=== PATIENT | female | born 1985 | race Caucasian/White ===

== ENCOUNTER 2016-03-07 12:21 | Inpatient (IN) | payer OTHER ==
[~2016-03-07] VITALS: Ht 157.4 cm; Wt 60.1 kg
--- NOTE | ~2016-03-07 | O ---
[place], [place] OPERATIVE NOTE NAME: [facility]QUIM [facility]ES [id number] UNIT #: [id number] ROOM: 428 DOCTOR: YOKO CANADA MD BIRTHDATE: [birth year] DOS: 03/08/2016 PREOPERATIVE DIAGNOSIS: Left forearm abscess. POSTOPERATIVE DIAGNOSIS: Left forearm abscess. PROCEDURE: Incision and drainage, left forearm abscess. SURGEON: Yoko Canada MD TYING MACHINE OPERATOR: [id number]. ANESTHESIA: MAC. INDICATION: This is a 30-year-old lady with a history of left forearm abscess who comes in today for the above-mentioned procedure. The procedure and its complications were explained to the patient in detail preoperatively, and she agreed to proceed. DESCRIPTION OF PROCEDURE: After identifying the patient, the patient was brought to the operating suite and laid in the supine position. After the parts were painted and draped in the usual sterile fashion, a time-out procedure was called after sedation was administered by the Anesthesia team. An incision was made in the most fluctuant part of the abscess. A small amount of purulence was encountered, which was sent for culture and sensitivity. The abscess cavity was then irrigated with saline and packed with quarter-inch iodoform pack. Dressing was placed. There were no complications. Blood loss was minimal. Dr. Yoko Canada, the attending surgeon, was present throughout the operating case. Yoko Canada MD CM:OPRECORD:OPERATIVE NOTE [id number] YOKO CANADA MD 03/25/16 1436 interface
[~2016-03-07 12:21] MED LIST: AMOXICILLIN500 M2 PO; AMOXIL500 MG PO; BACTRIM DS 8001 TA1 PO; CEPHALEXIN500 M1 PO; CLEOCIN150 MG PO; HYDROCODONE BIT1 T11 PO; MOTRIN800 MG PO; NAPROSYN500 MG PO; NKHM; NORCO 5-325 TA1 EACH PO; OXYCODONE AND A1 TA9 PO; PEN-VEE K500 MG PO; Peridex 473 ML473 ML PO; SUDAFED60 MG PO; TRAMADOL HCL50 MG PO; TRAZODONE100 MG PO; ULTRAM50 MG PO
[2016-03-07 12:38] VITALS: BP 127/83
[2016-03-07 13:22] LABS: BASO # 0.1 10*3/uL (0.0-0.1); BASO % 0.6 % (0.0-1.0); EOS # 0.1 10*3/uL (0.0-0.4); HEMATOCRIT 44.2 % (37.0-47.0); HEMOGLOBIN 14.4 g/dl (12.0-16.0); LYMPH % 23.8 % (27.0-41.0); MEAN CELL VOLUME 93.2 fl (81.0-99.0); MEAN CORPUSCULAR HGB 30.4 pg (27.0-31.0); MEAN CORPUSCULAR HGB CONC 32.6 g/dl (33.0-37.0); MEAN PLATELET VOLUME 11.2 fl (9.6-12.3); MONO # 0.8 10*3/uL (0.1-1.0); NEUT # 5.4 10*3/uL (2.3-7.9); NEUT % 64.2 % (47.0-73.0); PLATELET COUNT AUTOMATED 198 10*3/uL (130-400); RED BLOOD COUNT 4.74 10*6/uL (4.10-5.10); RED CELL DISTRI WIDTH 13.6 % (0-14.5); WHITE BLOOD COUNT 8.3 10*3/uL (4.8-10.8)
[2016-03-07 13:37] LABS: ALBUMIN 3.7 gm/dl (3.1-4.5); ALKALINE PHOSPHATASE 94 U/L (45-117); BILIRUBIN, TOTAL 0.4 mg/dl (0.2-1.0); BUN 8 mg/dl (7-24); CARBON DIOXIDE 27 mmol/L (21-32); CHLORIDE 100 mmol/L (98-107); EST GLOM FILT AFRICAN AMERICAN > 60 ml/min; GLUCOSE 95 mg/dL (65-99); POTASSIUM 4.3 mmol/L (3.5-5.1); SGOT/AST 24 IU/L (3-35); SGPT/ALT 31 U/L (12-78); SODIUM 137 mmol/L (136-145); TOTAL PROTEIN 7.9 gm/dL (6.4-8.2)
[2016-03-07 14:30] VITALS: BP 108/68
[2016-03-07 15:00] VITALS: BP 110/70
[2016-03-07 15:19] LABS: LA>2 REFLEX 2 HR DRAW NOW
[2016-03-07 16:00] VITALS: BP 110/68
[2016-03-07 17:00] VITALS: BP 132/75
[2016-03-07] MEDS ORDERED: PAXIL40 M1 PO ×2 (17:36→17:38)
[2016-03-07 18:18] LABS: URINE AMPHETAMINES < 1000 (1000ng/ml); URINE BARBITURATES < 200 (200ng/ml); URINE COCAINE < 300 (300ng/ml)
[2016-03-07 20:00] VITALS: BP 121/71
[2016-03-08] VITALS (9 sets, daily range): BP systolic 93–116; BP diastolic 37–86
[2016-03-08 01:12] LABS: BILIRUBIN NEGATIVE (NEGATIVE); BLOOD NEGATIVE (NEGATIVE); CLARITY CLEAR (CLEAR); COLOR YELLOW (YELLOW); GLUCOSE NEGATIVE (NEGATIVE); KETONE NEGATIVE (NEGATIVE); LEUKO ESTERASE NEGATIVE (NEGATIVE); NITRITE NEGATIVE (NEGATIVE); PH 7.5 (5.0-9.0); PROTEIN NEGATIVE (NEGATIVE); UROBILINOGEN 0.2 E.U./dl (0.2-1.0)
[2016-03-08 01:20] LABS: URINE REFLEX COMMENT NO (NO); WBC 0-2 wbc/hpf (0-5)
[2016-03-08 06:22] LABS: BASO % 0.6 % (0.0-1.0); EOS # 0.2 10*3/uL (0.0-0.4); EOS % 3.2 % (1.0-4.0); LYMPH # 1.7 10*3/uL (1.3-4.4); LYMPH % 33.1 % (27.0-41.0); MEAN CORPUSCULAR HGB 30.7 pg (27.0-31.0); MEAN PLATELET VOLUME 11.8 fl (9.6-12.3); MONO # 0.5 10*3/uL (0.1-1.0); MONO % 9.8 % (3.0-9.0); NEUT # 2.6 10*3/uL (2.3-7.9); NEUT % 53.1 % (47.0-73.0); PLATELET COUNT AUTOMATED 139 10*3/uL (130-400); RED BLOOD COUNT 3.55 10*6/uL (4.10-5.10); RED CELL DISTRI WIDTH 13.8 % (0-14.5)
[2016-03-08 06:23] LABS: HEMOGLOBIN 10.9 g/dl (12.0-16.0)
[2016-03-08 06:52] LABS: HEMOGLOBIN A1c 5.3 % (4.8-5.6)
[2016-03-08 07:01] LABS: INTERNATIONAL NORM RATIO 1.1 (2.0-3.5); PROTHROMBIN TIME 11.7 SECONDS (9.0-12.4)
[2016-03-08 07:04] LABS: BUN 9 mg/dl (7-24); CARBON DIOXIDE 27 mmol/L (21-32); CHLORIDE 107 mmol/L (98-107); CHOLESTEROL 124 mg/dL (<200); EST GLOM FILT AFRICAN AMERICAN > 60 ml/min; GLUCOSE 95 mg/dL (65-99); HDL CHOLESTEROL 39 mg/dl (40-60); LDL CHOLESTEROL 75 mg/dL (9-159); MAGNESIUM 2.1 mg/dL (1.5-2.1); POTASSIUM 4.2 mmol/L (3.5-5.1); SODIUM 141 mmol/L (136-145); THYROID STIM HORMONE (HS) 0.281 uIU/ml (0.358-4.75); TRIGLYCERIDES 49 mg/dl (<150); VLDL CHOLESTEROL 10 mg/dL (6-40)
[2016-03-08 07:32] LABS: FOLIC ACID 5.76 ng/mL (>5.38)
[2016-03-09] VITALS: BP 114/68
[2016-03-09 03:37] LABS: BASO % 0.8 % (0.0-1.0); EOS # 0.2 10*3/uL (0.0-0.4); EOS % 3.4 % (1.0-4.0); HEMATOCRIT 32.6 % (37.0-47.0); HEMOGLOBIN 10.6 g/dl (12.0-16.0); LYMPH # 1.5 10*3/uL (1.3-4.4); LYMPH % 28.7 % (27.0-41.0); MEAN CELL VOLUME 94.5 fl (81.0-99.0); MEAN CORPUSCULAR HGB 30.7 pg (27.0-31.0); MEAN CORPUSCULAR HGB CONC 32.5 g/dl (33.0-37.0); MEAN PLATELET VOLUME 11.3 fl (9.6-12.3); MONO # 0.4 10*3/uL (0.1-1.0); MONO % 7.9 % (3.0-9.0); NEUT # 3.2 10*3/uL (2.3-7.9); PLATELET COUNT AUTOMATED 140 10*3/uL (130-400); RED BLOOD COUNT 3.45 10*6/uL (4.10-5.10); RED CELL DISTRI WIDTH 13.8 % (0-14.5); WHITE BLOOD COUNT 5.3 10*3/uL (4.8-10.8)
[2016-03-09 08:00] VITALS: BP 122/58
[2016-03-09] MEDS ORDERED: B12,B-12,B 12500 MC1 PO (10:46)
[2016-03-09] MEDS ORDERED: MINOCYCLINE100 MG PO (10:46)
[2016-03-09 12:00] VITALS: BP 110/60
== END 2016-03-09 14:59 | disposition home health service (06) | DRG 872 ==
LOC: ED 12:21 → 4E 14:54 → EDHOLD 14:54 → 4E 15:53
PROVIDERS: Internal Medicine; Nurse Practitioner Family
PROC: 02HV33Z Insertion of Infusion Device into Superior Vena Cava, Percutaneous Approach (ICD-10-PCS; principal; 2016-03-07)
DX: A41.9 Sepsis, unspecified organism (principal); L02.414 Cutaneous abscess of left upper limb; L03.114 Cellulitis of left upper limb; R65.20 Severe sepsis without septic shock; F17.200 Nicotine dependence, unspecified, uncomplicated; B19.20 Unspecified viral hepatitis C without hepatic coma; Z79.899 Other long term (current) drug therapy; Z98.51 Tubal ligation status; Z98.890 Other specified postprocedural states

== ENCOUNTER 2016-06-07 15:26 | Emergency (ER) | payer OTHER ==
[~2016-06-07] VITALS: Ht 157.4 cm; Wt 61.2 kg
[~2016-06-07 15:26] MED LIST changes: +B12,B-12,B 12500 MC1 PO; +MINOCYCLINE100 MG PO; +PAXIL40 M1 PO
[2016-06-07] MEDS ORDERED: QUETIAPINE FUM200 M3 PO (15:50)
[2016-06-07] MEDS ORDERED: ESCITALOPRAM OX20 MG PO (15:50)
[2016-06-07] MEDS ORDERED: HYDROXYZINE PAM25 M1 PO (15:51)
[2016-06-07] MEDS ORDERED: CEPHALEXIN500 M1 PO (17:06)
[2016-06-07] MEDS ORDERED: BACTRIM DS 8001 TA1 PO (17:06)
[2016-06-07] MEDS ORDERED: ULTRAM50 MG PO (17:06)
== END 2016-06-07 17:09 | disposition home or self-care (01) ==
LOC: ED 15:26
DX: L02.413 Cutaneous abscess of right upper limb (principal); L03.113 Cellulitis of right upper limb; F17.200 Nicotine dependence, unspecified, uncomplicated

== ENCOUNTER 2019-09-21 18:54 | Emergency (ER) | payer BC, OTHER ==
[~2019-09-21] VITALS: Ht 157.4 cm; Wt 68.0 kg
[~2019-09-21 18:54] MED LIST changes: +ESCITALOPRAM OX20 MG PO; +HYDROXYZINE PAM25 M1 PO; +QUETIAPINE FUM200 M3 PO
[2019-09-21 19:42] LABS: BASO % 0.5 % (0.0-1.0); EOS # 0.1 10*3/uL (0.0-0.4); EOS % 0.6 % (1.0-4.0); HEMATOCRIT 43.7 % (37.0-47.0); LYMPH # 1.8 10*3/uL (1.3-4.4); LYMPH % 22.8 % (27.0-41.0); MEAN CELL VOLUME 95.4 fl (81.0-99.0); MEAN CORPUSCULAR HGB 32.1 pg (27.0-31.0); MEAN CORPUSCULAR HGB CONC 33.6 g/dl (33.0-37.0); MEAN PLATELET VOLUME 11.1 fl (9.6-12.3); MONO # 0.6 10*3/uL (0.1-1.0); NEUT # 5.5 10*3/uL (2.3-7.9); NEUT % 68.7 % (47.0-73.0); PLATELET COUNT AUTOMATED 168 10*3/uL (130-400); RED BLOOD COUNT 4.58 10*6/uL (4.10-5.10); RED CELL DISTRI WIDTH 13.1 % (0-14.5)
[2019-09-21 19:58] LABS: ALBUMIN 3.9 gm/dl (3.1-4.5); ALKALINE PHOSPHATASE 75 U/L (45-117); BUN 10 mg/dl (7-24); CHLORIDE 108 mmol/L (98-107); CREATININE 0.89 mg/dL (0.55-1.02); POTASSIUM 3.9 mmol/L (3.5-5.1); SGOT/AST 24 IU/L (3-35); SGPT/ALT 45 U/L (12-78); SODIUM 139 mmol/L (136-145); TOTAL PROTEIN 7.7 gm/dL (6.4-8.2)
[2019-09-21] MEDS ORDERED: AUGMENTIN 875875 MG PO (20:40)
[2019-09-22] MEDS ORDERED: AUGMENTIN 875-875 MG PO (11:36)
[2019-09-22] MEDS ORDERED: ANTIBIOTIC28.4 GM T (11:36)
== END 2019-09-21 20:58 | disposition home or self-care (01) ==
LOC: ED 18:54
PROVIDERS: Nurse Practitioner
DX: S81.852A Open bite, left lower leg, initial encounter (principal); L03.116 Cellulitis of left lower limb; F17.200 Nicotine dependence, unspecified, uncomplicated; Z79.899 Other long term (current) drug therapy; W54.0XXA Bitten by dog, initial encounter; Y93.89 Activity, other specified; Y92.89 Other specified places as the place of occurrence of the external cause; Y99.8 Other external cause status

== ENCOUNTER 2019-09-22 10:58 | Emergency (ER) | payer BC, OTHER ==
[~2019-09-22] VITALS: Ht 157.4 cm; Wt 68.0 kg
[~2019-09-22 10:58] MED LIST changes: +AUGMENTIN 875875 MG PO
[2019-09-22] MEDS ORDERED: AUGMENTIN 875-875 MG PO (11:36)
[2019-09-22] MEDS ORDERED: ANTIBIOTIC28.4 GM T (11:36)
== END 2019-09-22 11:56 | disposition home or self-care (01) ==
LOC: ED 10:58
DX: S81.852A Open bite, left lower leg, initial encounter (principal); L03.116 Cellulitis of left lower limb; F17.200 Nicotine dependence, unspecified, uncomplicated; Z88.1 Allergy status to other antibiotic agents; Z79.899 Other long term (current) drug therapy; Z98.51 Tubal ligation status; Z98.890 Other specified postprocedural states; Z87.891 Personal history of nicotine dependence; W54.0XXA Bitten by dog, initial encounter; Y93.89 Activity, other specified; Y92.89 Other specified places as the place of occurrence of the external cause; Y99.8 Other external cause status

== ENCOUNTER 2023-01-06 15:42 | Emergency (ER) | payer BC ==
[~2023-01-06] VITALS: Ht 160 cm; Wt 72.6 kg
[~2023-01-06 15:42] MED LIST changes: +ANTIBIOTIC28.4 GM T; +AUGMENTIN 875-875 MG PO
[2023-01-06] MEDS ORDERED: ASPIRIN ADULT L81 M2 PO (16:06)
[2023-01-06] MEDS ORDERED: MELOXICAM15 MG PO (16:16)
== END 2023-01-06 16:40 | disposition home or self-care (01) ==
LOC: ED 15:42
DX: S63.502A Unspecified sprain of left wrist, initial encounter (principal); Z98.890 Other specified postprocedural states; Z98.51 Tubal ligation status; F17.200 Nicotine dependence, unspecified, uncomplicated; X58.XXXA Exposure to other specified factors, initial encounter; Y93.89 Activity, other specified; Y92.89 Other specified places as the place of occurrence of the external cause; Y99.8 Other external cause status

== ENCOUNTER 2023-01-13 08:16 | Emergency (ER) | payer BC ==
[~2023-01-13] VITALS: Ht 160 cm; Wt 72.6 kg
[~2023-01-13 08:16] MED LIST changes: +ASPIRIN ADULT L81 M2 PO; +MELOXICAM15 MG PO
[2023-01-13] MEDS ORDERED: IBU800 MG PO (09:11)
== END 2023-01-13 09:25 | disposition home or self-care (01) ==
LOC: ED 08:16
DX: M77.8 Other enthesopathies, not elsewhere classified (principal); Z98.51 Tubal ligation status; Z98.890 Other specified postprocedural states; F17.200 Nicotine dependence, unspecified, uncomplicated